=== PATIENT | female | born 1950 | race Caucasian/White ===

== ENCOUNTER → 2023-05-23 | Outpatient (CLI) | payer MEDICARE | END | disposition home or self-care (01) | LOC: RAD 00:16 | PROVIDERS: ATTEND Nurse Practitioner | DX: M81.0 Age-related osteoporosis without current pathological fracture (principal) ==

== ENCOUNTER 2025-07-12 12:33 | Emergency (ER) | payer OTHER ==
[~2025-07-12] VITALS: Ht 160 cm; Wt 97.5 kg
== END 2025-07-12 14:55 | disposition home or self-care (01) ==
LOC: ED 12:33
DX: S86.912A Strain of unspecified muscle(s) and tendon(s) at lower leg level, left leg, initial encounter (principal); S50.02XA Contusion of left elbow, initial encounter; D16.9 Benign neoplasm of bone and articular cartilage, unspecified; X50.1XXA Overexertion from prolonged static or awkward postures, initial encounter; Y93.89 Activity, other specified; Y92.89 Other specified places as the place of occurrence of the external cause; Y99.8 Other external cause status